=== PATIENT | male | born 1990 | race Two or more races ===

== ENCOUNTER 2021-02-25 11:40 | Emergency (ER) | payer OTHER ==
[2021-02-25 11:55] VITALS: RESP 18
[2021-02-25] MEDS ORDERED: IBUPROFEN 600 MG TAB PO STA (13:34)
[2021-02-25] MEDS ORDERED: SODIUM CHLORIDE 0.9% 50 ML IVPB ONE (13:45)
[2021-02-25] MEDS ORDERED: CASIRIVIMAB (REGN10933) (EUA) 600 MG, IMDEVIMAB (REGN10987) (EUA) 600 MG in SODIUM CHLO... IVPB ONE (13:45)
--- NOTE | 2021-02-25 16:02 | ED ---
ENT HPI - General Chief complaint: ENT Stated complaint: Lost of taste/smell,wants covid test Time Seen by Provider: 02/25/21 13:20 Source: patient, RN notes reviewed Mode of arrival: ambulatory Limitations: no limitations - History of Present Illness Initial comments: Patient is a 30-year-old male presenting to the emergency department for a covid test. Patient states he lost his taste and smell yesterday, he has mild cough, body aches and has concerns for covid He states been going around his work and his girlfriend just tested positive as well. He denies any chest pains or shortness of breath, no fevers or chills, no nausea or vomiting, no abdominal pain. He denies history of asthma, no COPD comes a former smoker. He has no further complaints. Upon arrival to the ER, he has a low-grade temperature 99.7, otherwise vitals are normal. - Related Data Allergies Allergy/AdvReac Type Severity Reaction Status Date / Time No Known Allergies Allergy Verified 02/25/21 11:55 Review of Systems ROS Statement: Those systems with pertinent positive or pertinent negative responses have been documented in the HPI. ROS Other: All systems not noted in ROS Statement are negative. Past Medical History Past Medical History: No Reported History Additional Past Surgical History / Comment(s): spinal injury Past Psychological History: No Psychological Hx Reported Smoking Status: Former smoker, Vaper Past Alcohol Use History: Occasional Past Drug Use History: Marijuana General Exam - General Exam Comments Initial Comments: GENERAL: Patient is well-developed and well-nourished. Patient is nontoxic and in no acute distress. HEAD: Atraumatic, normocephalic. EYES: Pupils equal round and reactive to light, extraocular movements intact, sclera anicteric, conjunctiva are normal. Eyelids were unremarkable. ENT: Nares patent, oropharynx clear without exudates. Moist mucous membranes. NECK: Normal range of motion, supple without lymphadenopathy or JVD. LUNGS: Unlabored respirations. Breath sounds clear to auscultation bilaterally and equal. No wheezes rales or rhonchi. HEART: Regular rate and rhythm without murmurs, rubs or gallops. ABDOMEN: Soft, nontender, normoactive bowel sounds. No guarding, no rebound. No masses appreciated. MUSCULOSKELETAL: Normal extremities with adequate strength and normal range of motion, no pitting or edema. No clubbing or cyanosis. NEUROLOGICAL: Patient is alert and oriented x 3. SKIN: Warm, Dry, normal turgor, no rashes or lesions noted. Limitations: no limitations Course Vital Signs 02/25/21 11:51 Temperature 99.7 F H Pulse Rate 87 Respiratory 18 Rate Blood Pressure 135/80 O2 Sat by Pulse 98 Oximetry Medical Decision Making - Medical Decision Making Patient is a 30-year-old male here with viral type symptoms since yesterday, he had concerns for covid with recent exposures. His covid test was positive today. He did agree to monoclonal antibodies which she does qualify for. He received these without any adverse side effects. His vital signs remained stable. He is stable for discharge. I recommended taking Tylenol or Motrin for any symptoms. Return parameters were discussed with him and he verbalized understanding. Case discussed with Dr. Paniagua. - Lab Data Lab Results 02/25/21 Range/Units 11:58 Coronavirus (PCR) Detected A (Not Detectd) Disposition Clinical Impression: COVID-19 Disposition: HOME SELF-CARE Condition: Stable Instructions (If sedation given, give patient instructions): Coronavirus Disease 2019 (COVID-19) Additional Instructions: Please return to the Emergency Department if symptoms worsen or any other concerns. Recommend Tylenol and/or Motrin for fever or body aches. Drink lots of fluids. Follow-up with your primary care as needed. Is patient prescribed a controlled substance at d/c from ED?: No Referrals: None,Stated [Primary Care Provider] - 1-2 days Time of Disposition: 16:02
[2021-02-25 16:30] VITALS: BP 113/74; PULSE 72; TEMP 98.1
== END 2021-02-25 16:15 | disposition home or self-care (01) ==
LOC: EC 11:40
DX: U07.1 COVID-19 (principal); F12.90 Cannabis use, unspecified, uncomplicated; Z87.891 Personal history of nicotine dependence; Z72.89 Other problems related to lifestyle
CPT/HCPCS: 87635; 96365; 99282

== ENCOUNTER 2021-03-06 08:53 | Emergency (ER) | payer OTHER ==
[2021-03-06 09:00] VITALS: BP 158/72; PULSE 98; RESP 18; TEMP 98.4
--- NOTE | 2021-03-06 09:09 | ED ---
General Adult HPI - General Chief complaint: Recheck/Abnormal Lab/Rx Stated complaint: wants Covid test Time Seen by Provider: 03/06/21 08:55 Source: patient, RN notes reviewed Mode of arrival: ambulatory Limitations: no limitations - History of Present Illness Initial comments: This a 30-year-old male presents emergency Department with chief complaint and work requiring COVID-19 testing. Patient states that he tested positive for some 10 days ago he's had symptoms for almost 2 weeks he states does feel improved. Patient required test to come back to work. Patient offers no complaints of chest pain shortness breath no nausea vomiting diarrhea constipation. - Related Data Allergies Allergy/AdvReac Type Severity Reaction Status Date / Time No Known Allergies Allergy Verified 03/06/21 09:00 Review of Systems ROS Statement: Those systems with pertinent positive or pertinent negative responses have been documented in the HPI. ROS Other: All systems not noted in ROS Statement are negative. Past Medical History Past Medical History: No Reported History Additional Past Medical History / Comment(s): spinal injury Past Surgical History: No Surgical Hx Reported Additional Past Surgical History / Comment(s): spinal injury Past Psychological History: No Psychological Hx Reported Smoking Status: Former smoker, Vaper Past Alcohol Use History: Occasional Past Drug Use History: Marijuana General Exam Limitations: no limitations General appearance: alert, in no apparent distress Head exam: Present: atraumatic, normocephalic, normal inspection Eye exam: Present: normal appearance, PERRL, EOMI. Absent: scleral icterus, conjunctival injection, periorbital swelling ENT exam: Present: normal exam, normal oropharynx, mucous membranes moist Neck exam: Present: normal inspection. Absent: tenderness, meningismus, lymphadenopathy Respiratory exam: Present: normal lung sounds bilaterally. Absent: respiratory distress, wheezes, rales, rhonchi, stridor Cardiovascular Exam: Present: regular rate, normal rhythm, normal heart sounds. Absent: systolic murmur, diastolic murmur, rubs, gallop, clicks Course Vital Signs 03/06/21 08:57 Temperature 98.4 F Pulse Rate 98 Respiratory 18 Rate Blood Pressure 158/72 O2 Sat by Pulse 97 Oximetry Medical Decision Making - Medical Decision Making Patient is negative for COVID-19. Patient we discharged in stable condition return parameters were discussed. - Lab Data Lab Results 03/06/21 Range/Units 09:02 Coronavirus (PCR) Not Detected (Not Detectd) Disposition Clinical Impression: History of COVID-19, Encounter for laboratory testing for COVID-19 virus Disposition: HOME SELF-CARE Condition: Stable Additional Instructions: Please return to the Emergency Department if symptoms worsen or any other concerns. Is patient prescribed a controlled substance at d/c from ED?: No Referrals: None,Stated [Primary Care Provider] - 1-2 days Time of Disposition: 09:37
== END 2021-03-06 09:41 | disposition home or self-care (01) ==
LOC: EC 08:53
DX: Z11.52 Encounter for screening for COVID-19 (principal); Z20.822 Contact with and (suspected) exposure to COVID-19; F12.90 Cannabis use, unspecified, uncomplicated; Z86.16 Personal history of COVID-19; Z87.891 Personal history of nicotine dependence
CPT/HCPCS: 87635; 99282

== ENCOUNTER 2023-09-12 17:47 | Emergency (ER) | payer OTHER ==
[2023-09-12 18:24] VITALS: PULSE 92; RESP 18; TEMP 97.7
--- NOTE | 2023-09-12 18:27 | XR ---
EXAMINATION TYPE: XR shoulder complete RT DATE OF EXAM: 09/12/2023 6:14 PM CLINICAL INDICATION:Male, 32 years old with history of pain; COMPARISON: None TECHNIQUE: XR shoulder complete RT; examined in AP, internally rotated and scapular Y projections. FINDINGS: No evidence of acute osseous pathology, joint dislocation, or soft tissue swelling. The remaining po rtions of the visualized chest are unremarkable. IMPRESSION: No acute osseous pathology.
--- NOTE | 2023-09-12 18:28 | ED ---
Upper Extremity HPI - General Chief Complaint: Extremity Injury, Upper Stated Complaint: Pain in R shoulder Time Seen by Provider: 09/12/23 18:00 Source: patient, RN notes reviewed Mode of arrival: ambulatory Limitations: no limitations - History of Present Illness Initial Comments: This is a 32-year-old male who presents the emergency department chief complaint of anterior right shoulder pain. Patient states that he has been having ongoing right shoulder pain for about 2-3 years but since has worsened over the last week. 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 He denies paresthesias, loss of motor function. States he has taken motrin today with some relief. Denies previous ortho surgeries. - Related Data Previous Rx's Medication Instructions Recorded Ketorolac [Toradol] 10 mg PO Q8HR #15 tab 09/12/23 Allergies Allergy/AdvReac Type Severity Reaction Status Date / Time No Known Allergies Allergy Verified 09/12/23 17:59 Review of Systems ROS Statement: Those systems with pertinent positive or pertinent negative responses have been documented in the HPI. ROS Other: All systems not noted in ROS Statement are negative. Past Medical History Past Medical History: No Reported History Additional Past Medical History / Comment(s): spinal injury Past Surgical History: No Surgical Hx Reported Additional Past Surgical History / Comment(s): spinal injury Past Psychological History: No Psychological Hx Reported Smoking Status: Former smoker, Vaper Past Alcohol Use History: Occasional Past Drug Use History: Marijuana General Exam Limitations: no limitations General appearance: alert, in no apparent distress Head exam: Present: atraumatic, normocephalic, normal inspection Eye exam: Present: normal appearance, PERRL, EOMI. Absent: scleral icterus, conjunctival injection, periorbital swelling ENT exam: Present: normal exam, mucous membranes moist Neck exam: Present: normal inspection. Absent: tenderness, meningismus, l ymphadenopathy Respiratory exam: Present: normal lung sounds bilaterally. Absent: respiratory distress, wheezes, rales, rhonchi, stridor Cardiovascular Exam: Present: regular rate, normal rhythm, normal heart sounds. Absent: systolic murmur, diastolic murmur, rubs, gallop, clicks GI/Abdominal exam: Present: soft, normal bowel sounds. Absent: distended, tenderness, guarding, rebound, rigid Right Shoulder Exam: Present: normal inspection, full ROM (pain with active and ROM, especially flexion and extension), tenderness. Absent: swelling, abrasion, laceration, ecchymosis, deformity, crepitus, dislocation Back exam: Present: normal inspection Neurological exam: Present: alert, oriented X3, CN II-XII intact Psychiatric exam: Present: normal affect, normal mood Skin exam: Present: warm, dry, intact, normal color. Absent: rash Course Vital Signs 09/12/23 09/12/23 17:57 18:55 Temperature 97.7 F Pulse Rate 92 92 Respiratory 18 18 Rate Blood Pressure 157/103 147/84 O2 Sat by Pulse 98 97 Oximetry Medical Decision Making - Medical Decision Making Was pt. sent in by a medical professional or institution ([facility], UNDERWRITING SALES REPRESENTATIVE, urgent care, hospital, or senior living...) When possible be specific @ -No Did you speak to anyone other than the patient for history (EMS, parent, family, police, friend...)? What history was obtained from this source @ -No Did you review nursing and triage notes (agree or disagree)? Why? @ -I reviewed and agree with nursing and triage notes Were old charts reviewed (outside hosp., previous admission, EMS record, old EKG, old radiological studies, urgent care reports/EKG's, senior living records)? Report findings @ -No old charts were reviewed Differential Diagnosis (chest pain, altered mental status, abdominal pain women, abdominal pain men, vaginal bleeding, weakness, fever, dyspnea, syncope, headache, dizziness, GI bleed, back pain, seizure, CVA, palpatations, mental health, musculoskeletal)? @ -Differential Musculoskeletal Muscular strain, contusion, ligament sprain, fracture, arthritis, septic arthritis, bursitis, cellulitis, muscle spasm, nerve compression, DVT, arterial occlusion, herpes zoster, electrolyte abnormality, tumor.... This is not meant to be in all inclusive list EKG interpreted by me (3pts min.). @ -None X-rays interpreted by me (1pt min.). @ -X-ray of right shoulder no acute osseous abnormality CT interpreted by me (1pt min.). @ -None done U/S interpreted by me (1pt. min.). @ -None done What testing was considered but not performed or refused? (CT, X-rays, U/S, labs)? Why? @ -None What meds were considered but not given or refused? Why? @ -None Did you discuss the management of the patient with other professionals (professionals i.e. , PA, UNDERWRITING SALES REPRESENTATIVE, lab, RT, psych nurse, manager social, back hanger, teacher, technology officer, sample case porter)? Give summary @ -No Was smoking cessation discussed for >3mins.? @ -No Was critical care preformed (if so, how long)? @ -No Were there social determinants of health that impacted care today? How? (Homelessness, low income, unemployed, alcoholism, drug addiction, t ransportation, low edu. Level, literacy, decrease access to med. care, fci, rehab)? @ -No Was there de-escalation of care discussed even if they declined (Discuss DNR or withdrawal of care, Hospice)? DNR status @ -No What co-morbidities impacted this encounter? (DM, HTN, Smoking, COPD, CAD, Cancer, CVA, ARF, Chemo, Hep., AIDS, mental health diagnosis, sleep apnea, morbid obesity)? @ -None Was patient admitted / discharged? Hospital course, mention meds given and route, prescriptions, significant lab abnormalities, going to OR and other pertinent info. @ -Discharged. 32-year-old male with chief complaint of right shoulder pain. On examination patient has complete range of motion of the right shoulder and strength is intact bilaterally. There are no acute neurological deficits noted. Patient stating that he has some discomfort on his anterior shoulder over that has worsened over the past few weeks. X Ray unremarkable. She has been provided with a shot of Toradol in addition to a steroid. Patient will be sent home with oral Toradol to take as needed. Additionally will be provided with a adapted physical education specialist follow-up for further evaluation if pain persist. Patient is in agreement with this plan. Case discussed with Dr. Bullard Undiagnosed new problem with uncertain prognosis? @ -No Drug Therapy requiring intensive monitoring for toxicity (Heparin, Nitro, Insulin, Cardizem)? @ -No Were any procedures done? @ -No Diagnosis/symptom? @ -right shoulder pain, shoulder strain Acute, or Chronic, or Acute on Chronic? @ -acute Uncomplicated (without systemic symptoms) or Complicated (systemic symptoms)? @ -uncomplicated Side effects of treatment? @ -No Exacerbation, Progression, or Severe Exacerbation? @ -No Poses a threat to life or bodily function? How? (Chest pain, [place], [place], pneumonia, PE, COPD, DKA, ARF, appy, cholecystitis, CVA, Diverticulitis, Homicidal, Suicidal, threat to staff... and all critical care pts) @ -No Disposition Clinical Impression: Shoulder pain, right, Sprain of shoulder Narrative: Please return to the Emergency Department if symptoms worsen or any other concerns. Disposition: HOME SELF-CARE Condition: Good Instructions (If sedation given, give patient instructions): Shoulder Sprain (ED) Prescriptions: Ketorolac [Toradol] 10 mg PO Q8HR #15 tab Is patient prescribed a controlled substance at d/c from ED?: No Referrals: None,Stated [Primary Care Provider] - 1-2 days Santana Gastelum DO [Doctor of Osteopathic Medicine] - 1-2 days Time of Disposition: 18:41
[2023-09-12] MEDS: methylPREDNISolone SOD SUCCI 125 MG/2 ML VIAL IM ONE (18:50)
[2023-09-12] MEDS: KETOROLAC 15 MG/ML 1 ML VIAL IM STA (18:51)
[2023-09-12 19:07] VITALS: BP 147/84
== END 2023-09-12 18:56 | disposition home or self-care (01) ==
LOC: EC 17:47
DX: S43.401A Unspecified sprain of right shoulder joint, initial encounter (principal); S46.911A Strain of unspecified muscle, fascia and tendon at shoulder and upper arm level, right arm, initial encounter; F17.290 Nicotine dependence, other tobacco product, uncomplicated; X50.9XXA Other and unspecified overexertion or strenuous movements or postures, initial encounter
CPT/HCPCS: 73030; 99283; 96372 ×2; J1885; J2919